=== PATIENT | male | born 1980 | race Caucasian/White ===

== ENCOUNTER → 2016-11-04 | Outpatient (REF) ==
--- NOTE | 2016-11-05 03:04 | REP ---
Clinical: evaluation. Technique: Portable AP and cross-table lateral views of the skull. Findings: Innumerable comminuted fractures through the skull with evidence for pneumocephalus and and scattered radiodense foreign body material noted. Impression: Diffuse calvarial fractures, pneumocephalus and radiodense foreign body material. Signed by Stephen Alcocer MD 11/05/2016 02:55 A
== END ==
LOC: M LAB 09:47